=== PATIENT | male | born 1975 | race Caucasian/White ===

== ENCOUNTER 2016-04-07 09:24 | Inpatient (IN) | payer OTHER ==
[2016-04-07 09:55] VITALS: BMI 35.2
--- NOTE | 2016-04-07 11:35 | HP ---
COWS - Scale Resting Pulse: 1= [place] 81-100 Sweatin= Chills/Flushing Restless Observation: 3= Extraneous Movement Pupil Size: 2= Moderately Dilated Bone or Joint Aches: 4=Acute Joint/Muscle Pain Runny Nose/ Eye Tearin= Nasal Congestion GI Upset > 30mins: 2= Nausea/Diarrhea Tremor Observation: 2= Slight Tremor Visible Yawning Observation: 2= >3x During Session Anxiety or Irritability: 2=Irritable/Anxious Goose Flesh Skin: 3=Piloerection COWS Score: 23 CIWA Score - CIWA Score Nausea/Vomitin-Int. Nausea w/Dry Heave Muscle Tremors: 4-Moderate,w/Arms Extend Anxiety: 4-Mod. Anxious/Guarded Agitation: 4-Moderately Restless Paroxysmal Sweats: 1-Minimal Palms Moist Orientation: 0-Oriented Tacttile Disturbances: 3-Moderate Itch/Numb/Burn Auditory Disturbances: 0-None Visual Disturbances: 0-None Headache: 1-Very Mild CIWA-Ar Total Score: 21 Admission [facility] - HPI Chief Complaint: DETOX [place] FOR HEROIN AND ALCOHOL DEPENDENCE Allergies/Adverse Reactions: Allergies Allergy/AdvReac Type Severity Reaction Status Date / Time Fish Containing Products Allergy Severe Hives Verified 04/07/16 10:34 peanut Allergy Severe Difficulty Verified 04/07/16 10:34 Breathing No Known Drug Allergies Allergy Verified 04/07/16 10:34 History of Present Illness: 40 Y/O MALE WITH A HX OF ALCOHOL AND HEROIN DEPENDENCE SEEKING DETOX [place] Exam Limitations: No Limitations - Ebola screening Have you traveled outside of the country in the last 21 days: No Have you had contact with anyone from an Ebola affected area: No Have you been sick,other than usual withdrawal symptoms: No Do you have a fever: No - Review of Systems Constitutional: Chills, Loss of Appetite, Night Sweats, Changes in sleep EENT: reports: Blurred Vision (WEARS GLASSES), Tearing, Nose Congestion Respiratory: reports: No Symptoms reported Cardiac: reports: Lightheadedness GI: reports: Constipated, Diarrhea, Nausea, Poor Appetite, Poor Fluid Intake, Vomiting : reports: No Symptoms Reported Musculoskeletal: reports: Back Pain, Joint Pain, Muscle Pain Integumentary: reports: Bruising (FROM IVD USEON HANDS) Neuro: reports: Headache, Tremors, Unsteady Gait, Dizziness, Other (BLACKOUTS) Endocrine: reports: No Symptoms Reported Hematology: reports: No Symptoms Reported Psychiatric: reports: Orientated x3, Anxious, other (HX INSOMNIA) Other Systems: Reviewed and Negative Patient History - Patient Medical History Hx Anemia: No Hx Asthma: No Hx Chronic Obstructive Pulmonary Disease (COPD): No Hx Cardiac Disorders: No Hx Hypertension: Yes (on meds.) Hx Hypercholesterolemia: No Hx Pacemaker: No HX Cerebrovascular Accident: No Hx Seizures: No Hx Diabetes: No Hx Gastrointestinal Disorders: No Hx Liver Disease: No Hx Genitourinary Disorders: No Hx Sexually Transmitted Disorders: No Hx Renal Disease (ESRD): No Hx Thyroid Disease: No Hx Human Immunodeficiency Virus (HIV): No (NEGATIVE HX) Hx Hepatitis C: Yes (WAS TREATED) Hx Depression: No Hx Suicide Attempt: No Hx Bipolar Disorder: No Hx Schizophrenia: No Other Medical History: INSOMNIA - Patient Surgical History Past Surgical History: Yes Hx Neurologic Surgery: No Hx Cataract Extraction: No Hx Cardiac Surgery: No Hx Lung Surgery: No Hx Breast Surgery: No Hx Breast Biopsy: No Hx Abdominal Surgery: No Hx Appendectomy: No Hx Cholecystectomy: No Hx Genitourinary Surgery: No Hx Orthopedic Surgery: Yes (left ankle surgery 1997) Other Surgical History: R arm abscess 1 yr ago. Anesthesia Reaction: No - PPD History Previous Implant?: Yes Documented Results: Negative w/o proof Implanted On Prior R Admission?: No Date: 04/21/14 PPD to be Administered?: Yes - Reproductive History Patient is a Female of Child Bearing Age (11 -55 yrs old): No (MALE) - Smoking Cessation Smoking history: Current every day smoker Have you smoked in the past 12 months: Yes Aproximately how many cigarettes per day: 3 Cigars Per Day: 0 Hx Chewing Tobacco Use: No Initiated information on smoking cessation: Yes 'Breaking Loose' booklet given: 04/07/16 - Substance & Tx. History Hx Alcohol Use: Yes (VODKA) Hx Substance Use: Yes (HEROIN/PCP(SPORADICALLY)) Substance Use Type: Alcohol, Heroin Hx Substance Use Treatment: Yes ([facility] ) - Substances Abused Heroin Route: Injection Frequency: Daily Amount used: 8-10 bags Age of first use: 16 Date of Last Use: 04/06/16 Alcohol Route: Oral Frequency: Daily Amount used: 1 and 1/2 pints vodka Age of first use: 13 Date of Last Use: 04/06/16 PCP Route: Smoking Frequency: 1-3 times last 30 days Amount used: 1 joint Age of first use: 23 Date of Last Use: 03/10/16 Family Disease History - Family Disease History Family Disease History: Diabetes: Father (HTN, alcohol), Heart Disease: Father, Other: Father Admission Physical Exam [facility] - Vital Signs Vital Signs: Vital Signs - 24 hr 04/07/16 09:53 Temperature 97.8 F Pulse Rate 92 H Respiratory 18 Rate Blood Pressure 157/104 - Physical General Appearance: Yes: Moderate Distress, Obese, Irritable, Anxious HEENTM: Yes: EOMI, Normocephalic, MEÑO, Pharynx Normal Respiratory: Yes: Chest Non-Tender, Lungs Clear, Normal Breath Sounds, No Respiratory Distress Neck: Yes: Supple, Trachea in good position Breast: Yes: Breast Exam Deferred Cardiology: Yes: Regular Rhythm, Regular Rate, S1, S2 Abdominal: Yes: Normal Bowel Sounds, Non Tender, Soft Genitourinary: Yes: Other (N/C) Back: Yes: Within Normal Limits Musculoskeletal: Yes: full range of Motion, Gait Steady Extremities: Yes: Normal Range of Motion, Non-Tender Neurological: Yes: nurse practitioner physicians assistant II-XII NML intact, Fully Oriented, Alert Integumentary: Yes: Dry, Warm, Track Last (HANDS--NO REDNESS OR SWELLING) Lymphatic: Yes: Within Normal Limits - Diagnostic (1) Essential hypertension Current Visit: Yes Status: Chronic (2) Insomnia Current Visit: Yes Status: Chronic (3) Nicotine dependence Current Visit: Yes Status: Chronic Qualifiers: Nicotine product type: cigarettes Substance use status: uncomplicated Qualified Code(s): F17.210 - Nicotine dependence, cigarettes, uncomplicated (4) Obesity Current Visit: Yes Status: Chronic Qualifiers: Obesity type: unspecified obesity type Obesity severity: unspecified obesity severity Qualified Code(s): E66.9 - Obesity, unspecified (5) Alcohol dependence with uncomplicated withdrawal Current Visit: Yes Status: Acute (6) Opioid dependence with withdrawal Current Visit: Yes Status: Acute (7) PCP (phencyclidine) abuse Current Visit: Yes Status: Acute Cleared for Admission [facility] - Detox or Rehab Detox Regimen/Protocol: Methadone/Librium [facility] Breath Alcohol Content Breath Alcohol Content: 0 Urine Drug Screen - Results Drug Screen Negative: No Urine Drug Screen Results: OPI-Opiates, PCP-Phencyclidine, MDMA-Ecstasy, BZO- Benzodiazepines, OXY-Oxycodone
[2016-04-07] MEDS ORDERED: MAG HYDROX/AL HYDROX/SIMETH 30 ML UNIT-DOSE CUP PO PRN (11:41)
[2016-04-07] MEDS ORDERED: LOPERAMIDE HCL 2 MG CAPSULE PO PRN (11:41)
[2016-04-07] MEDS ORDERED: NICOTINE POLACRILEX 2 MG GUM BUC PRN (11:41)
[2016-04-07] MEDS ORDERED: guaiFENesin/D-METHORPHAN HB 10 ML UNIT-DOSE CUPS PO PRN (11:41)
[2016-04-07] MEDS ORDERED: diphenhydrAMINE HCL 50 MG CAPSULE PO PRN (11:41)
[2016-04-07] MEDS ORDERED: IBUPROFEN 400 MG TABLET (FP) PO PRN (11:41)
[2016-04-07] MEDS ORDERED: chlordiazePOXIDE HCL 25 MG CAPSULE PO PRN (11:41)
[2016-04-07] MEDS ORDERED: P-EPHED 60MG/TRIPROLIDI 2.5MG TABLET PO PRN (11:41)
[2016-04-07] MEDS ORDERED: MAGNESIUM CITRATE 300 ML BOTTLE PO PRN (11:41)
[2016-04-07] MEDS ORDERED: MENTHOL/PHENOL 1 EACH UD MM PRN (11:41)
[2016-04-07] MEDS ORDERED: MAGNESIUM HYDROX 2400MG/30ML ORAL SUSPENSION 30 ML CUP PO PRN (11:41)
[2016-04-07] MEDS ORDERED: chlordiazePOXIDE HCL 25 MG CAPSULE PO ONE (11:55)
[2016-04-07] MEDS ORDERED: METHADONE HCL 10 MG TABLET (FOR DETOX USE ONLY) PO ONE ×2 (11:55→23:00)
[2016-04-07] MEDS: NICOTINE 14 MG/24 HOURS TOPICAL PATCH TD SCH (12:23)
[2016-04-07 14:29] LABS: HIV 1 & 2 AB NEGATIVE; HIV 1 AGp24 NEGATIVE
--- NOTE | 2016-04-07 16:11 | EKG ---
Test Reason : Blood Pressure : / mmHG Vent. Rate : 085 BPM Atrial Rate : 085 BPM P-R Int : 152 ms QRS Dur : 098 ms QT Int : 392 ms P-R-T Axes : 015 068 027 degrees QTc Int : 466 ms SINUS RHYTHM WITH OCCASIONAL AND PREMATURE ATRIAL COMPLEXES AND BASELINE ARTIFACT ABNORMAL ECG NO PREVIOUS ECGS AVAILABLE Confirmed by CUAUHTEMOC MOSS, ROEL ([id number]) on 04/07/2016 4:11:04 PM Referred By: Adriano Zimmer Confirmed By:ROEL POSADAS MD
[2016-04-07] MEDS: chlordiazePOXIDE HCL 25 MG CAPSULE PO SCH ×2 (17:19→22:10)
[2016-04-07] MEDS: THIAMINE HCL 100 MG TABLET (FP) PO SCH (22:10)
[2016-04-08] MEDS: chlordiazePOXIDE HCL 25 MG CAPSULE PO SCH ×4 (05:50→22:00)
[2016-04-08] MEDS: ONDANSETRON *ODT* 4 MG TABLET SL PRN (09:53)
[2016-04-08] MEDS ORDERED: METHADONE HCL 10 MG TABLET (FOR DETOX USE ONLY) PO SCH (10:00)
--- NOTE | 2016-04-08 10:03 | PN ---
[facility] CIWA - CIWA Score Nausea/Vomitin Muscle Tremors: 4-Moderate,w/Arms Extend Anxiety: 4-Mod. Anxious/Guarded Agitation: 4-Moderately Restless Paroxysmal Sweats: 1-Minimal Palms Moist Orientation: 0-Oriented Tacttile Disturbances: 3-Moderate Itch/Numb/Burn Auditory Disturbances: 0-None Visual Disturbances: 0-None Headache: 0-None Present CIWA-Ar Total Score: 21 [facility] COWS - Scale Resting Pulse: 1= [place] 81-100 Sweatin= Chills/Flushing Restless Observation: 3= Extraneous Movement Pupil Size: 2= Moderately Dilated Bone or Joint Aches: 4=Acute Joint/Muscle Pain Runny Nose/ Eye Tearin= Nasal Congestion GI Upset > 30mins: 3= Vomiting/Diarrhea Tremor Observation of Outstretched Hands: 1= Tremor [place], Not Seen Yawning Observation: 1= 1-2x During Session Anxiety or Irritability: 2=Irritable/Anxious Goose Flesh Skin: 0=Smooth Skin COWS Score: 19 [facility] Progress Note (SOAP) Subjective: ANXIETY,TREMORS, SWEATS, NAUSEA,SNEEZING,NASAL CONGESTIONS. Objective: 04/08/16 10:02 Vital Signs Temperature 98.2 F 04/08/16 06:25 Pulse Rate 86 04/08/16 06:25 Respiratory Rate 18 04/08/16 06:25 Blood Pressure 138/102 04/08/16 06:25 O2 Sat by Pulse Oximetry (%) Laboratory Last Values HIV 1&2 Antibody Screen Negative 04/07/16 11:20 HIV P24 Antigen Negative 04/07/16 11:20 OTHER LABS PENDING Assessment: 04/08/16 10:02 WITHDRAWAL S Plan: CONTINUE DETOX ZOFRAN DIRECTED
[2016-04-08] MEDS: PRENATAL VITAMINS W/ FOLIC ACID TABLET (FP) PO SCH (10:20)
[2016-04-08] MEDS: NICOTINE 14 MG/24 HOURS TOPICAL PATCH TD SCH (10:21)
[2016-04-08 10:28] LABS: MCH 29.7 pg (25.7-33.7); MCHC 33.1 g/dl (32.0-35.9); MEAN CELL VOLUME 89.8 fl (80-96); MEAN PLT VOLUME 11.5 fl (7.5-11.1); PLATELET COUNT 142 K/MM3 (134-434); RDW 13.2 % (11.9-15.9); WHITE BLOOD COUNT 5.2 K/mm3 (4.0-10.0)
[2016-04-08 10:52] LABS: ALBUMIN 4.2 g/dl (3.4-5.0); ALK PHOS 76 U/L (45-117); ANION GAP 7 (8-16); BILIRUBIN,TOTAL 0.5 mg/dL (0.2-1.0); CALCIUM 9.6 mg/dL (8.5-10.1); CO2 29 mmol/L (21-32); CREATININE 1.2 mg/dL (0.7-1.3); GLUCOSE,RANDOM 106 mg/dL (74-106); SGOT/AST 23 U/L (15-37); SGPT/ALT 38 U/L (12-78); TOT PROT 7.8 g/dl (6.4-8.2)
--- NOTE | 2016-04-08 11:03 | CONSULT ---
[facility] Psychiatric Consult - Data Date of interview: 04/08/16 Admission source: [facility] Identifying data: This is 40 years old single H male,residing with family, employed admitted to [address] [place] [address] for Alcohol and Opioid dependence. Substance Abuse History: Reports drinking since 13 years old,Heroin since 16 years old (about 1 0 bags daily),PCP on and off. Medical History: Significant for Obesity,HTN. Psychiatric History: Patient denies psychiatric history,but reports some sleeping difficulties.he states that trazodone 100 mg po hs was helping in the past while in detox/rehab treatment. Physical/Sexual Abuse/Trauma History: denies Mental Status Exam - Mental Status Exam Alert and Oriented to: Time, Place, Person Cognitive Function: Grossly Intact Patient Appearance: Unkempt Mood: Sad, Irritable Affect: Mood Congruent Patient Behavior: Cooperative Speech Pattern: Clear Voice Loudness: Normal Thought Process: Goal Oriented Thought Disorder: Not Present Hallucinations: Denies Suicidal Ideation: Denies Homicidal Ideation: Denies Insight/Judgement: Fair Sleep: Difficulty falling asleep Appetite: Fair Muscle strength/Tone: Normal Gait/Station: Normal Psychiatric Findings - Problem List ([place] 1, 2,3) (1) Alcohol dependence with uncomplicated withdrawal Current Visit: Yes Status: Chronic (2) PCP (phencyclidine) abuse Current Visit: Yes Status: Chronic (3) Essential hypertension Current Visit: Yes Status: Chronic (4) Nicotine dependence Current Visit: Yes Status: Chronic Qualifiers: Nicotine product type: cigarettes Substance use status: uncomplicated Qualified Code(s): F17.210 - Nicotine dependence, cigarettes, uncomplicated (5) Obesity Current Visit: Yes Status: Chronic Qualifiers: Obesity type: unspecified obesity type Obesity severity: unspecified obesity severity Qualified Code(s): E66.9 - Obesity, unspecified (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
[2016-04-08] MEDS ORDERED: INFLUENZA VACCINE 45 MCG/0.5 ML (MDV 16-17) IM ONE (12:00)
[2016-04-08] MEDS: amLODIPine BESYLATE 10 MG TABLET (FP) PO SCH (12:12)
[2016-04-08 14:20] LABS: URINE APPEARANCE SLCLOUDY; URINE BLOOD NEGATIVE (NEGATIVE); URINE COLOR AMBER; URINE GLUCOSE (UA) NEGATIVE (NEGATIVE); URINE KETONE TRACE (NEGATIVE); URINE LEUK ESTERASE NEGATIVE (NEGATIVE); URINE NITRITE NEGATIVE (NEGATIVE); URINE UROBILINOGEN 2.0 E.U/dl E.U./dl (0.2-1.0)
[2016-04-08 14:24] LABS: URINE PROTEIN 2+ (NEGATIVE)
[2016-04-08 14:32] LABS: URINE HYALINE CAST 10 /lpf; URINE MUCUS MANY; URINE RBC 1 /hpf (0-3); URINE WBC 3 /hpf (3-5)
[2016-04-08] MEDS: traZODone HCL 100 MG TABLET (FP) PO SCH (22:00)
[2016-04-08] MEDS: THIAMINE HCL 100 MG TABLET (FP) PO SCH (22:00)
[2016-04-08] MEDS: hydrOXYzine PAMOATE 25 MG CAPSULE (FP) PO PRN (23:51)
[2016-04-09] MEDS: ACETAMINOPHEN 325 MG TABLET (FP) PO PRN (05:45)
[2016-04-09] MEDS: chlordiazePOXIDE HCL 25 MG CAPSULE PO SCH ×2 (05:45→11:34)
[2016-04-09] MEDS: amLODIPine BESYLATE 10 MG TABLET (FP) PO SCH ×2 (07:33→09:17)
[2016-04-09] MEDS ORDERED: chlordiazePOXIDE HCL 25 MG CAPSULE PO ONE (09:04)
[2016-04-09] MEDS ORDERED: cloNIDine HCL 0.1 MG TABLET PO ONE ×2 (09:44→19:16)
[2016-04-09] MEDS: METHADONE HCL 5 MG TABLET (FOR DETOX USE ONLY) PO SCH (09:46)
[2016-04-09] MEDS ORDERED: CYCLOBENZAPRINE HCL 10 MG TABLET (FP) PO ONE (09:46)
[2016-04-09] MEDS: PRENATAL VITAMINS W/ FOLIC ACID TABLET (FP) PO SCH (09:46)
[2016-04-09] MEDS: NICOTINE 14 MG/24 HOURS TOPICAL PATCH TD SCH (09:49)
--- NOTE | 2016-04-09 10:33 | PN ---
[facility] CIWA - CIWA Score Nausea/Vomitin-Int. Nausea w/Dry Heave Muscle Tremors: 4-Moderate,w/Arms Extend Anxiety: 4-Mod. Anxious/Guarded Agitation: 4-Moderately Restless Paroxysmal Sweats: 1-Minimal Palms Moist Orientation: 0-Oriented Tacttile Disturbances: 3-Moderate Itch/Numb/Burn Auditory Disturbances: 0-None Visual Disturbances: 0-None Headache: 0-None Present CIWA-Ar Total Score: 20 S COWS - Scale Resting Pulse: 1= [place] 81-100 Sweatin=Flushed/Facial Moisture Restless Observation: 3= Extraneous Movement Pupil Size: 2= Moderately Dilated Bone or Joint Aches: 4=Acute Joint/Muscle Pain Runny Nose/ Eye Tearin= Nasal Congestion GI Upset > 30mins: 2= Nausea/Diarrhea Tremor Observation of Outstretched Hands: 2= Slight Tremor Visible Yawning Observation: 2= >3x During Session Anxiety or Irritability: 2=Irritable/Anxious Goose Flesh Skin: 3=Piloerection COWS Score: 24 [facility] Progress Note (SOAP) Subjective: C/O SEVERE WITHDRAWAL SX--ANXIETY,IRRITABILITY,SWEATS, MUSCLE ACHES,TREMORS, GOOSE BUMPS, NAUSEA,HEADACHES,SNEEZING,NO APPETITE, INTERMITTENT SLEEP. Objective: 04/09/16 10:33 Vital Signs Temperature 98.4 F 04/09/16 10:14 Pulse Rate 107 H 04/09/16 10:14 Respiratory Rate 18 04/09/16 10:14 Blood Pressure 154/107 04/09/16 10:14 O2 Sat by Pulse Oximetry (%) Laboratory Last Values WBC 5.2 K/mm3 (4.0-10.0) D 04/08/16 05:30 RBC 4.85 M/mm3 (4.00-5.60) 04/08/16 05:30 Hgb 14.4 GM/dL (11.7-16.9) 04/08/16 05:30 Hct 43.5 % (35.4-49) 04/08/16 05:30 MCV 89.8 fl (80-96) 04/08/16 05:30 MCHC 33.1 g/dl (32.0-35.9) 04/08/16 05:30 RDW 13.2 % (11.9-15.9) 04/08/16 05:30 Plt Count 142 K/MM3 (134-434) 04/08/16 05:30 MPV 11.5 fl (7.5-11.1) H 04/08/16 05:30 Sodium 137 mmol/L (136-145) 04/08/16 05:30 Potassium 4.3 mmol/L (3.5-5.1) 04/08/16 05:30 Chloride 101 mmol/L (98-107) 04/08/16 05:30 Carbon Dioxide 29 mmol/L (21-32) 04/08/16 05:30 Anion Gap 7 (8-16) L 04/08/16 05:30 BUN 17 mg/dL (7-18) 04/08/16 05:30 Creatinine 1.2 mg/dL (0.7-1.3) D 04/08/16 05:30 Creat Clearance w eGFR > 60 (>60) 04/08/16 05:30 Random Glucose 106 mg/dL (74-106) 04/08/16 05:30 Calcium 9.6 mg/dL (8.5-10.1) 04/08/16 05:30 Total Bilirubin 0.5 mg/dL (0.2-1.0) D 04/08/16 05:30 AST 23 U/L (15-37) D 04/08/16 05:30 ALT 38 U/L (12-78) D 04/08/16 05:30 Alkaline Phosphatase 76 U/L (45-117) 04/08/16 05:30 Total Protein 7.8 g/dl (6.4-8.2) 04/08/16 05:30 Albumin 4.2 g/dl (3.4-5.0) 04/08/16 05:30 Urine Color Shayy 04/08/16 11:15 Urine Appearance Slcloudy 04/08/16 11:15 Urine pH 5.0 (5.0-8.0) 04/08/16 11:15 Ur Specific [place] 1.035 (1.001-1.035) 04/08/16 11:15 Urine Protein 2+ (NEGATIVE) H 04/08/16 11:15 Urine Glucose (UA) Negative (NEGATIVE) 04/08/16 11:15 Urine Ketones Trace (NEGATIVE) H 04/08/16 11:15 Urine Blood Negative (NEGATIVE) 04/08/16 11:15 Urine Nitrite Negative (NEGATIVE) 04/08/16 11:15 Urine Bilirubin 2.0 (NEGATIVE) 04/08/16 11:15 Urine Urobilinogen 2.0 e.u/dl E.U./dl (0.2-1.0) 04/08/16 11:15 Ur Leukocyte Esterase Negative (NEGATIVE) 04/08/16 11:15 Urine RBC 1 /hpf (0-3) 04/08/16 11:15 Urine WBC 3 /hpf (3-5) 04/08/16 11:15 Ur Epithelial Cells Rare /hpf (FEW) 04/08/16 11:15 Hyaline Casts 10 /lpf 04/08/16 11:15 Urine Mucus Many 04/08/16 11:15 RPR Titer Nonreactive (NONREACTIVE) 04/08/16 05:30 HIV 1&2 Antibody Screen Negative 04/07/16 11:20 HIV P24 Antigen Negative 04/07/16 11:20 Assessment: 04/09/16 10:33 WITHDRAWAL SX Plan: CONTINUE DETOX DIRECTED.
[2016-04-09] MEDS: ONDANSETRON *ODT* 4 MG TABLET SL PRN (12:48)
[2016-04-09] MEDS: CYCLOBENZAPRINE HCL 10 MG TABLET (FP) PO SCH ×2 (13:41→22:01)
[2016-04-09] MEDS ORDERED: TRIMETHOBENZAMIDE HCL 200MG/2ML INJ IM PRN (15:55)
[2016-04-09] MEDS: chlordiazePOXIDE 5 MG CAPSULE PO SCH ×2 (18:23→22:01)
--- NOTE | 2016-04-09 19:20 | PN ---
[facility] Progress Note Note: bp 160/119 with vomiting undigested food earlier today clonidin 0.1 mg x 1 now repeat bp in two hours around 900pm discontinue motrin begin zantac 150 mg bid continue detox
[2016-04-09] MEDS ORDERED: cloNIDine HCL 0.1 MG TABLET ONE (19:24)
[2016-04-09] MEDS: hydrOXYzine PAMOATE 25 MG CAPSULE (FP) PO PRN (19:27)
[2016-04-09] MEDS: THIAMINE HCL 100 MG TABLET (FP) PO SCH (22:01)
[2016-04-09] MEDS: traZODone HCL 100 MG TABLET (FP) PO SCH (22:01)
[2016-04-09] MEDS: RANITIDINE HCL 150 MG TABLET (FP) PO SCH (22:01)
[2016-04-09] MEDS: LISINOPRIL 10 MG TABLET (FP) PO SCH (22:54)
[2016-04-10] MEDS: chlordiazePOXIDE 5 MG CAPSULE PO SCH ×2 (05:43→10:24)
[2016-04-10] MEDS: CYCLOBENZAPRINE HCL 10 MG TABLET (FP) PO SCH ×3 (05:45→22:08)
[2016-04-10] MEDS: amLODIPine BESYLATE 10 MG TABLET (FP) PO SCH ×2 (07:28→10:27)
[2016-04-10] MEDS: LISINOPRIL 10 MG TABLET (FP) PO SCH ×2 (10:24→22:08)
[2016-04-10] MEDS: RANITIDINE HCL 150 MG TABLET (FP) PO SCH ×2 (10:24→22:08)
[2016-04-10] MEDS: PRENATAL VITAMINS W/ FOLIC ACID TABLET (FP) PO SCH (10:24)
[2016-04-10] MEDS: NICOTINE 14 MG/24 HOURS TOPICAL PATCH TD SCH (10:24)
[2016-04-10] MEDS: METHADONE HCL 5 MG TABLET (FOR DETOX USE ONLY) PO SCH (10:24)
--- NOTE | 2016-04-10 10:55 | PN ---
[facility] Progress Note (SOAP) Subjective: ANXIETY, DECREASED NAUSEA/VOMITING,RESTLESSNESS. Objective: 04/10/16 10:54 Vital Signs Temperature 97.4 F L 04/10/16 10:00 Pulse Rate 115 H 04/10/16 10:00 Respiratory Rate 04/10/16 10:00 Blood Pressure 144/98 04/10/16 10:00 O2 Sat by Pulse Oximetry (%) Assessment: 04/10/16 10:54 WITHDRAWAL SX Plan: CONTINUE DETOX
[2016-04-10] MEDS ORDERED: chlordiazePOXIDE HCL 25 MG CAPSULE PO ONE (14:00)
[2016-04-10] MEDS: chlordiazePOXIDE HCL 10 MG CAPSULE PO SCH ×2 (17:09→22:08)
[2016-04-10] MEDS: THIAMINE HCL 100 MG TABLET (FP) PO SCH (22:08)
[2016-04-10] MEDS: traZODone HCL 100 MG TABLET (FP) PO SCH (22:09)
[2016-04-11] MEDS: ONDANSETRON *ODT* 4 MG TABLET SL PRN (03:31)
[2016-04-11] MEDS: hydrOXYzine PAMOATE 25 MG CAPSULE (FP) PO PRN (05:30)
[2016-04-11] MEDS: CYCLOBENZAPRINE HCL 10 MG TABLET (FP) PO SCH ×3 (05:30→22:51)
[2016-04-11] MEDS: chlordiazePOXIDE HCL 10 MG CAPSULE PO SCH ×2 (05:30→10:24)
[2016-04-11] MEDS: ACETAMINOPHEN 325 MG TABLET (FP) PO PRN (05:31)
[2016-04-11] MEDS ORDERED: METHADONE HCL 10 MG TABLET (FOR DETOX USE ONLY) PO SCH (10:00)
[2016-04-11] MEDS: PRENATAL VITAMINS W/ FOLIC ACID TABLET (FP) PO SCH (10:23)
[2016-04-11] MEDS: RANITIDINE HCL 150 MG TABLET (FP) PO SCH ×2 (10:24→22:51)
[2016-04-11] MEDS: LISINOPRIL 10 MG TABLET (FP) PO SCH ×2 (10:24→22:51)
[2016-04-11] MEDS: amLODIPine BESYLATE 10 MG TABLET (FP) PO SCH (10:24)
[2016-04-11] MEDS: NICOTINE 14 MG/24 HOURS TOPICAL PATCH TD SCH (10:26)
--- NOTE | 2016-04-11 11:12 | PN ---
[facility] Progress Note (SOAP) Subjective: N/V, adominal discomfort, malaise Objective: 04/11/16 11:09 Vital Signs - 8 hr 04/11/16 04/11/16 04/11/16 06:28 07:58 10:57 Temperature 96.4 F L 97 F L Pulse Rate 118 H 120 H 114 H Respiratory 18 18 20 Rate Blood Pressure 157/95 135/93 174/116 04/11/16 10:58 Temperature Pulse Rate Respiratory Rate Blood Pressure 163/116 Laboratory Last Values WBC 5.2 K/mm3 (4.0-10.0) D 04/08/16 05:30 RBC 4.85 M/mm3 (4.00-5.60) 04/08/16 05:30 Hgb 14.4 GM/dL (11.7-16.9) 04/08/16 05:30 Hct 43.5 % (35.4-49) 04/08/16 05:30 MCV 89.8 fl (80-96) 04/08/16 05:30 MCHC 33.1 g/dl (32.0-35.9) 04/08/16 05:30 RDW 13.2 % (11.9-15.9) 04/08/16 05:30 Plt Count 142 K/MM3 (134-434) 04/08/16 05:30 MPV 11.5 fl (7.5-11.1) H 04/08/16 05:30 Sodium 137 mmol/L (136-145) 04/08/16 05:30 Potassium 4.3 mmol/L (3.5-5.1) 04/08/16 05:30 Chloride 101 mmol/L (98-107) 04/08/16 05:30 Carbon Dioxide 29 mmol/L (21-32) 04/08/16 05:30 Anion Gap 7 (8-16) L 04/08/16 05:30 BUN 17 mg/dL (7-18) 04/08/16 05:30 Creatinine 1.2 mg/dL (0.7-1.3) D 04/08/16 05:30 Creat Clearance w eGFR > 60 (>60) 04/08/16 05:30 Random Glucose 106 mg/dL (74-106) 04/08/16 05:30 Calcium 9.6 mg/dL (8.5-10.1) 04/08/16 05:30 Total Bilirubin 0.5 mg/dL (0.2-1.0) D 04/08/16 05:30 AST 23 U/L (15-37) D 04/08/16 05:30 ALT 38 U/L (12-78) D 04/08/16 05:30 Alkaline Phosphatase 76 U/L (45-117) 04/08/16 05:30 Total Protein 7.8 g/dl (6.4-8.2) 04/08/16 05:30 Albumin 4.2 g/dl (3.4-5.0) 04/08/16 05:30 Urine Color Shayy 04/08/16 11:15 Urine Appearance Slcloudy 04/08/16 11:15 Urine pH 5.0 (5.0-8.0) 04/08/16 11:15 Ur Specific [place] 1.035 (1.001-1.035) 04/08/16 11:15 Urine Protein 2+ (NEGATIVE) H 04/08/16 11:15 Urine Glucose (UA) Negative (NEGATIVE) 04/08/16 11:15 Urine Ketones Trace (NEGATIVE) H 04/08/16 11:15 Urine Blood Negative (NEGATIVE) 04/08/16 11:15 Urine Nitrite Negative (NEGATIVE) 04/08/16 11:15 Urine Bilirubin 2.0 (NEGATIVE) 04/08/16 11:15 Urine Urobilinogen 2.0 e.u/dl E.U./dl (0.2-1.0) 04/08/16 11:15 Ur Leukocyte Esterase Negative (NEGATIVE) 04/08/16 11:15 Urine RBC 1 /hpf (0-3) 04/08/16 11:15 Urine WBC 3 /hpf (3-5) 04/08/16 11:15 Ur Epithelial Cells Rare /hpf (FEW) 04/08/16 11:15 Hyaline Casts 10 /lpf 04/08/16 11:15 Urine Mucus Many 04/08/16 11:15 RPR Titer Nonreactive (NONREACTIVE) 04/08/16 05:30 HIV 1&2 Antibody Screen Negative 04/07/16 11:20 HIV P24 Antigen Negative 04/07/16 11:20 Labs noted Assessment: 04/11/16 11:10 withdrawal sx Plan: continie detox
[2016-04-11] MEDS ORDERED: cloNIDine HCL 0.1 MG TABLET PO ONE (12:02)
--- NOTE | 2016-04-11 19:14 | PN ---
[facility] Progress Note Note: PATIENT REPORTEDLY HAD ELEVATED BP , ONE TIME DOSE OF CLONIDINE 0.1MG GIVEN WITH GOOD EFFECT.
[2016-04-11] MEDS: traZODone HCL 100 MG TABLET (FP) PO SCH (22:51)
[2016-04-11] MEDS: THIAMINE HCL 100 MG TABLET (FP) PO SCH (22:51)
[2016-04-12] MEDS: CYCLOBENZAPRINE HCL 10 MG TABLET (FP) PO SCH (05:17)
[2016-04-12] MEDS: hydrOXYzine PAMOATE 25 MG CAPSULE (FP) PO PRN (05:17)
[2016-04-12] MEDS: ONDANSETRON *ODT* 4 MG TABLET SL PRN (05:18)
[2016-04-12] MEDS ORDERED: METHADONE HCL 5 MG TABLET (FOR DETOX USE ONLY) PO SCH (06:00)
[2016-04-12 06:22] VITALS: BP 142/101; PULSE 122; TEMP 97.1
[2016-04-12] MEDS: ACETAMINOPHEN 325 MG TABLET (FP) PO PRN (07:19)
[2016-04-12] MEDS: amLODIPine BESYLATE 10 MG TABLET (FP) PO SCH (07:20)
--- NOTE | 2016-04-12 10:42 | DS ---
[facility] Detox Discharge Summary Admission Date: 04/07/16 Discharge Date: 04/12/16 - History Present History: Alcohol Dependence, Opioid Dependence, Pcp Dependence Pertinent Past History: Obesity- BMI 35 Hypertension Hep C- Treated - Physical Exam Results Vital Signs: Vital Signs Temperature 97.1 F L 04/12/16 06:21 Pulse Rate 122 H 04/12/16 06:21 Respiratory Rate 18 04/12/16 06:21 Blood Pressure 142/101 04/12/16 06:21 O2 Sat by Pulse Oximetry (%) Pertinent Admission Physical Exam Findings: Withdrawal Symptoms Laboratory Last Values WBC 5.2 K/mm3 (4.0-10.0) D 04/08/16 05:30 RBC 4.85 M/mm3 (4.00-5.60) 04/08/16 05:30 Hgb 14.4 GM/dL (11.7-16.9) 04/08/16 05:30 Hct 43.5 % (35.4-49) 04/08/16 05:30 MCV 89.8 fl (80-96) 04/08/16 05:30 MCHC 33.1 g/dl (32.0-35.9) 04/08/16 05:30 RDW 13.2 % (11.9-15.9) 04/08/16 05:30 Plt Count 142 K/MM3 (134-434) 04/08/16 05:30 MPV 11.5 fl (7.5-11.1) H 04/08/16 05:30 Sodium 137 mmol/L (136-145) 04/08/16 05:30 Potassium 4.3 mmol/L (3.5-5.1) 04/08/16 05:30 Chloride 101 mmol/L (98-107) 04/08/16 05:30 Carbon Dioxide 29 mmol/L (21-32) 04/08/16 05:30 Anion Gap 7 (8-16) L 04/08/16 05:30 BUN 17 mg/dL (7-18) 04/08/16 05:30 Creatinine 1.2 mg/dL (0.7-1.3) D 04/08/16 05:30 Creat Clearance w eGFR > 60 (>60) 04/08/16 05:30 Random Glucose 106 mg/dL (74-106) 04/08/16 05:30 Calcium 9.6 mg/dL (8.5-10.1) 04/08/16 05:30 Total Bilirubin 0.5 mg/dL (0.2-1.0) D 04/08/16 05:30 AST 23 U/L (15-37) D 04/08/16 05:30 ALT 38 U/L (12-78) D 04/08/16 05:30 Alkaline Phosphatase 76 U/L (45-117) 04/08/16 05:30 Total Protein 7.8 g/dl (6.4-8.2) 04/08/16 05:30 Albumin 4.2 g/dl (3.4-5.0) 04/08/16 05:30 Urine Color Shayy 04/08/16 11:15 Urine Appearance Slcloudy 04/08/16 11:15 Urine pH 5.0 (5.0-8.0) 04/08/16 11:15 Ur Specific [place] 1.035 (1.001-1.035) 04/08/16 11:15 Urine Protein 2+ (NEGATIVE) H 04/08/16 11:15 Urine Glucose (UA) Negative (NEGATIVE) 04/08/16 11:15 Urine Ketones Trace (NEGATIVE) H 04/08/16 11:15 Urine Blood Negative (NEGATIVE) 04/08/16 11:15 Urine Nitrite Negative (NEGATIVE) 04/08/16 11:15 Urine Bilirubin 2.0 (NEGATIVE) 04/08/16 11:15 Urine Urobilinogen 2.0 e.u/dl E.U./dl (0.2-1.0) 04/08/16 11:15 Ur Leukocyte Esterase Negative (NEGATIVE) 04/08/16 11:15 Urine RBC 1 /hpf (0-3) 04/08/16 11:15 Urine WBC 3 /hpf (3-5) 04/08/16 11:15 Ur Epithelial Cells Rare /hpf (FEW) 04/08/16 11:15 Hyaline Casts 10 /lpf 04/08/16 11:15 Urine Mucus Many 04/08/16 11:15 RPR Titer Nonreactive (NONREACTIVE) 04/08/16 05:30 HIV 1&2 Antibody Screen Negative 04/07/16 11:20 HIV P24 Antigen Negative 04/07/16 11:20 labs noted - Treatment Hospital Course: Detox Protocol Followed, Detoxed Safely, Responded well Patient has Accepted a Rehab Referral to: Declined - Medication Discharge Medications: Ambulatory Orders Amlodipine Besylate [Norvasc -] 10 mg PO DAILY #30 tablet 04/21/14 Trazodone HCl [Desyrel -] 100 mg PO HS #30 tablet 04/08/16 - Diagnosis (1) Essential hypertension Status: Chronic (2) Opioid dependence with withdrawal Status: Acute (3) Alcohol dependence with uncomplicated withdrawal Status: Acute (4) Nicotine dependence Status: Acute Qualifiers: Nicotine product type: cigarettes Substance use status: uncomplicated Qualified Code(s): F17.210 - Nicotine dependence, cigarettes, uncomplicated (5) Obesity Status: Chronic Qualifiers: Obesity type: unspecified obesity type Obesity severity: unspecified obesity severity Qualified Code(s): E66.9 - Obesity, unspecified (6) PCP (phencyclidine) abuse Status: Acute (7) Substance-induced sleep disorder Status: Acute - AMA Did Patient Leave Against Medical Advice: No
== END 2016-04-12 09:12 | disposition home or self-care (01) | DRG 773 ==
LOC: YASAS 09:24 → Y3N 11:03
PROVIDERS: ADMIT Internal Medicine; ATTEND Internal Medicine
PROC: HZ2ZZZZ Detoxification Services for Substance Abuse Treatment (ICD-10-PCS; principal; 2016-04-07)
DX: F11.23 Opioid dependence with withdrawal (principal); F10.230 Alcohol dependence with withdrawal, uncomplicated; F16.10 Hallucinogen abuse, uncomplicated; F17.210 Nicotine dependence, cigarettes, uncomplicated; F19.282 Other psychoactive substance dependence with psychoactive substance-induced sleep disorder; I10 Essential (primary) hypertension; E66.9 Obesity, unspecified; Z68.35 Body mass index [BMI] 35.0-35.9, adult; G47.00 Insomnia, unspecified
CPT/HCPCS: 36415; 80053; 81003; 81015; 85027; 86593; 87389; 93005; 93010

== ENCOUNTER 2016-05-17 09:53 | Inpatient (IN) | payer OTHER ==
[2016-05-17 10:16] VITALS: BMI 35.7
--- NOTE | 2016-05-17 11:02 | HP ---
COWS - Scale Resting Pulse: 2= [place] 101-120 Sweatin= Chills/Flushing Restless Observation: 1= Difficult to Sit Still Pupil Size: 0= Normal to Room Light Bone or Joint Aches: 2= Severe Diffuse Aches Runny Nose/ Eye Tearin= Runny Nose/Eyes GI Upset > 30mins: 3= Vomiting/Diarrhea Tremor Observation: 2= Slight Tremor Visible Yawning Observation: 1= 1-2x During Session Anxiety or Irritability: 2=Irritable/Anxious Goose Flesh Skin: 3=Piloerection COWS Score: 19 CIWA Score - CIWA Score Nausea/Vomitin-Int. Nausea w/Dry Heave Muscle Tremors: 2 Anxiety: 4-Mod. Anxious/Guarded Agitation: 3 Paroxysmal Sweats: 2 Orientation: 0-Oriented Tacttile Disturbances: 0-None Auditory Disturbances: 0-None Visual Disturbances: 0-None Headache: 3-Moderate CIWA-Ar Total Score: 18 Admission ROS BHS - HPI Chief Complaint: "I relapsed and I just want to get back on track and be clean and healthy.' Patient is here to Detox from Alcohol and Heroin. Allergies/Adverse Reactions: Allergies Allergy/AdvReac Type Severity Reaction Status Date / Time Fish Containing Products Allergy Severe Hives Verified 05/17/16 10:29 peanut Allergy Severe Difficulty Verified 05/17/16 10:29 Breathing No Known Drug Allergies Allergy Verified 05/17/16 10:29 trazodone AdvReac Severe priapism Verified 05/17/16 10:53 History of Present Illness: Pt. is a 40 YO male here to detox from Alcohol and Heroin. Pt. has had several previous Detox admissions at [facility]. Pt. also intermittently uses Marijuana. Exam Limitations: No Limitations - Ebola screening Have you traveled outside of the country in the last 21 days: No Have you had contact with anyone from an Ebola affected area: No Have you been sick,other than usual withdrawal symptoms: No Do you have a fever: No - Review of Systems Constitutional: Chills, Diaphoresis, Fever, Loss of Appetite, Malaise, Night Sweats, Changes in sleep EENT: reports: Nose Congestion, Sinus Pressure Respiratory: reports: No Symptoms reported Cardiac: reports: No Symptoms Reported GI: reports: Constipated, Diarrhea, Nausea, Poor Appetite, Indigestion, Other ( Heartburn.) : reports: No Symptoms Reported Musculoskeletal: reports: Back Pain, Joint Pain, Muscle Pain, Joint Stiffness Integumentary: reports: No Symptoms Reported Neuro: reports: Headache, Tremors Endocrine: reports: No Symptoms Reported Hematology: reports: No Symptoms Reported Psychiatric: reports: Judgement Intact, Mood/Affect Appropiate, Orientated x3, Anxious Other Systems: Reviewed and Negative Patient History - Patient Medical History Hx Anemia: No Hx Asthma: No Hx Chronic Obstructive Pulmonary Disease (COPD): No Hx Cancer: No Hx Cardiac Disorders: No Hx Congestive Heart Failure: No Hx Hypertension: Yes (Takes Amlodipine.) Hx Hypercholesterolemia: No Hx Pacemaker: No HX Cerebrovascular Accident: No Hx Seizures: No Hx Dementia: No Hx Diabetes: No Hx Gastrointestinal Disorders: Yes (acid reflux) Hx Liver Disease: Yes (Hep C, Treated 2007, Achieved SVR.) Hx Genitourinary Disorders: No Hx Sexually Transmitted Disorders: No Hx Renal Disease (ESRD): No Hx Thyroid Disease: No Hx Human Immunodeficiency Virus (HIV): No (NEGATIVE HX; Last tested: 03/2016.) Hx Hepatitis C: Yes (WAS TREATED 2007, ACHIEVED SVR.) Hx Depression: No Hx Suicide Attempt: No (PATIENT DENIES CURRENT SI / HI.) Hx Bipolar Disorder: No Hx Schizophrenia: No Other Medical History: 2 episodes of prolonged erection, 2011 & 04/07, possibly due to Trazadone? - Patient Surgical History Past Surgical History: Yes Hx Neurologic Surgery: No Hx Cataract Extraction: No Hx Cardiac Surgery: No Hx Lung Surgery: No Hx Breast Surgery: No Hx Breast Biopsy: No Hx Abdominal Surgery: No Hx Appendectomy: No Hx Cholecystectomy: No Hx Genitourinary Surgery: No Hx Section: No Hx Orthopedic Surgery: Yes (left ankle in 1998) Other Surgical History: R arm abscess 1 yr ago. Anesthesia Reaction: No - PPD History Previous Implant?: Yes Documented Results: Negative w/proof Implanted On Prior R Admission?: Yes Date: 04/09/16 Results: 0 mm PPD to be Administered?: No - Reproductive History Patient is a Female of Child Bearing Age (11 -55 yrs old): No (PATIENT IS MALE.) - Smoking Cessation Smoking history: Current every day smoker Have you smoked in the past 12 months: Yes Aproximately how many cigarettes per day: 5 Cigars Per Day: 0 Hx Chewing Tobacco Use: No Initiated information on smoking cessation: Yes 'Breaking Loose' booklet given: 05/17/16 (GIVEN ON UNIT.) - Substance & Tx. History Hx Alcohol Use: Yes Hx Substance Use: Yes Substance Use Type: Alcohol, Heroin, Marijuana Hx Substance Use Treatment: Yes (Previous Detox admissions at [facility].) - Substances Abused Heroin Route: Injection Frequency: Daily Amount used: 8-10 bags Age of first use: 16 Date of Last Use: 05/16/16 Alcohol-vodka/beer Route: Oral Frequency: Daily Amount used: 2 pts./1 (40 oz.) Age of first use: 13 Date of Last Use: 05/17/16 Marijuana Route: Smoking Frequency: 1-2 times per week Amount used: $5-10 Age of first use: 18 Date of Last Use: 05/13/16 Family Disease History - Family Disease History Family Disease History: Diabetes: Father (HTN, alcohol), Heart Disease: Father, Other: Father, Mother (Knee Osteoarthritis.) Admission Physical Exam [facility] - Vital Signs Vital Signs: Vital Signs - 24 hr 05/17/16 10:13 Temperature 98.2 F Pulse Rate 106 H Respiratory 18 Rate Blood Pressure 151/97 - Physical General Appearance: Yes: Nourished, Appropriately Dressed, Mild Distress, Tremorous, Anxious HEENTM: Yes: Hearing grossly Normal, Normocephalic, Normal Voice, MEÑO, Pharynx Normal Respiratory: Yes: Chest Non-Tender, Lungs Clear, No Respiratory Distress Neck: Yes: No masses,lesions,Nodules, Supple, Trachea in good position Breast: Yes: Breast Exam Deferred Cardiology: Yes: Regular Rhythm, Regular Rate, S1, S2 Abdominal: Yes: Normal Bowel Sounds, Non Tender, Soft, Protuberent Genitourinary: Yes: Within Normal Limits Back: Yes: Decreased Range of Motion Musculoskeletal: Yes: Gait Steady, Back pain, Joint Stiffness Extremities: Yes: Tremors Neurological: Yes: Fully Oriented, Alert, Normal Mood/Affect, Normal Response Integumentary: Yes: Normal Color, Dry, Warm Lymphatic: Yes: Within Normal Limits - Diagnostic (1) Alcohol dependence with uncomplicated withdrawal Current Visit: Yes Status: Acute (2) Nicotine dependence Current Visit: Yes Status: Chronic Qualifiers: Nicotine product type: cigarettes Substance use status: uncomplicated Qualified Code(s): F17.210 - Nicotine dependence, cigarettes, uncomplicated (3) Opioid dependence with withdrawal Current Visit: Yes Status: Acute (4) Essential hypertension Current Visit: Yes Status: Chronic Comment: obesity related hypertension (5) Cannabis dependence, uncomplicated Current Visit: Yes Status: Acute (6) History of priapism Current Visit: Yes Status: Chronic (7) Chronic heartburn Current Visit: Yes Status: Chronic Cleared for Admission BHS - Detox or Rehab S Level of Care: Medically Managed (ADVISED PATIENT TO FOLLOW-UP WITH CONTRACTOR [employer] / REHAB MEDICAL PROVIDER AFTER DISCHARGE FROM DETOX FOR GENERAL MEDICAL ASSESSMENT.) Detox Regimen/Protocol: Methadone/Librium BHS Breath Alcohol Content Breath Alcohol Content: 0 Urine Drug Screen - Results Drug Screen Negative: No Urine Drug Screen Results: THC-Marijuana, NADEGE-Cocaine, OPI-Opiates, BZO- Benzodiazepines, OXY-Oxycodone
[2016-05-17] MEDS ORDERED: guaiFENesin/D-METHORPHAN HB 10 ML UNIT-DOSE CUPS PO PRN (11:37)
[2016-05-17] MEDS ORDERED: hydrOXYzine PAMOATE 50 MG CAPSULE (FP) PO PRN (11:37)
[2016-05-17] MEDS ORDERED: ACETAMINOPHEN 325 MG TABLET (FP) PO PRN (11:37)
[2016-05-17] MEDS ORDERED: P-EPHED 60MG/TRIPROLIDI 2.5MG TABLET PO PRN (11:37)
[2016-05-17] MEDS ORDERED: MAGNESIUM CITRATE 300 ML BOTTLE PO PRN (11:37)
[2016-05-17] MEDS ORDERED: NICOTINE POLACRILEX 2 MG GUM BUC PRN (11:37)
[2016-05-17] MEDS ORDERED: IBUPROFEN 400 MG TABLET (FP) PO PRN (11:37)
[2016-05-17] MEDS ORDERED: MAGNESIUM HYDROX 2400MG/30ML ORAL SUSPENSION 30 ML CUP PO PRN (11:37)
[2016-05-17] MEDS ORDERED: LOPERAMIDE HCL 2 MG CAPSULE PO PRN (11:37)
[2016-05-17] MEDS ORDERED: diphenhydrAMINE HCL 50 MG CAPSULE PO PRN (11:37)
[2016-05-17] MEDS ORDERED: chlordiazePOXIDE HCL 25 MG CAPSULE PO PRN (11:37)
[2016-05-17] MEDS ORDERED: MAG HYDROX/AL HYDROX/SIMETH 30 ML UNIT-DOSE CUP PO PRN (11:37)
[2016-05-17] MEDS ORDERED: MENTHOL/PHENOL 1 EACH UD MM PRN (11:37)
[2016-05-17] MEDS ORDERED: NICOTINE 14 MG/24 HOURS TOPICAL PATCH TD SCH (11:45)
[2016-05-17] MEDS ORDERED: RANITIDINE HCL 150 MG TABLET (FP) PO SCH (12:00)
[2016-05-17] MEDS ORDERED: METHADONE HCL 10 MG TABLET (FOR DETOX USE ONLY) PO ONE ×3 (12:00→23:00)
[2016-05-17] MEDS ORDERED: chlordiazePOXIDE HCL 25 MG CAPSULE PO ONE ×2 (12:00→14:45)
[2016-05-17] MEDS: CYCLOBENZAPRINE HCL 10 MG TABLET (FP) PO PRN ×2 (14:51→22:16)
[2016-05-17] MEDS: NICOTINE 14 MG/24 HOURS TOPICAL PATCH TD SCH (14:54)
[2016-05-17] MEDS: RANITIDINE HCL 150 MG TABLET (FP) PO SCH (15:50)
[2016-05-17] MEDS: chlordiazePOXIDE HCL 25 MG CAPSULE PO SCH ×2 (17:12→22:16)
[2016-05-17 17:45] LABS: URINE APPEARANCE CLEAR; URINE BILIRUBIN NEGATIVE (NEGATIVE); URINE BLOOD NEGATIVE (NEGATIVE); URINE GLUCOSE (UA) NEGATIVE (NEGATIVE); URINE KETONE TRACE (NEGATIVE); URINE LEUK ESTERASE NEGATIVE (NEGATIVE); URINE NITRITE NEGATIVE (NEGATIVE); URINE PROTEIN 2+ (NEGATIVE); URINE UROBILINOGEN NEGATIVE E.U./dl (0.2-1.0)
[2016-05-17 17:46] LABS: URINE COLOR YELLOW
[2016-05-17 17:49] LABS: CALCIUM OXALATE CRYSTALS RARE /hpf (NONE SEEN); URINE HYALINE CAST 56 /lpf; URINE MUCUS MANY; URINE RBC <1 /hpf (0-3); URINE WBC 2 /hpf (3-5)
--- NOTE | 2016-05-17 18:08 | EKG ---
Test Reason : Blood Pressure : / mmHG Vent. Rate : 086 BPM Atrial Rate : 086 BPM P-R Int : 138 ms QRS Dur : 096 ms QT Int : 378 ms P-R-T Axes : 008 064 026 degrees QTc Int : 452 ms NORMAL SINUS RHYTHM INCREASED R/S RATIO IN V1, CONSIDER EARLY TRANSITION OR POSTERIOR INFARCT ABNORMAL ECG WHEN COMPARED WITH ECG OF 07-APR-2016 12:40, SINUS RHYTHM HAS REPLACED ELECTRONIC VENTRICULAR PACEMAKER Confirmed by CARYL GALLAGHER MD ([id number]) on 05/17/2016 6:08:49 PM Referred By: Confirmed By:CARYL GALLAGHER MD
[2016-05-17] MEDS: THIAMINE HCL 100 MG TABLET (FP) PO SCH (22:16)
[2016-05-18] MEDS: chlordiazePOXIDE HCL 25 MG CAPSULE PO SCH ×4 (06:07→22:42)
--- NOTE | 2016-05-18 07:43 | CONSULT ---
[facility] Psychiatric Consult - Data Date of interview: 05/18/16 Admission source: [facility] Identifying data: This is 40 years old male with no psychiatric hospitalization history intoxicated w9ith: Alcohol, Heroin, Cannabis and Nicotine, history of PCP abuse as well Substance Abuse History: - Smoking Cessation. Smoking history: Current every day smoker. Have you smoked in the past 12 months: Yes. Aproximately how many cigarettes per day: 5. Cigars Per Day: 0. Hx Chewing Tobacco Use: No. Initiated information on smoking cessation: Yes. 'Breaking Loose' booklet given : 05/17/16 (GIVEN ON UNIT.). - Substance & Tx. History. Hx Alcohol Use: Yes. Hx Substance Use: Yes. Substance Use Type: Alcohol, Heroin, Marijuana. Hx Substance Use Treatment: Yes (Previous Detox admissions at [facility].). - Substances Abused. Heroin. Route: Injection. Frequency: Daily. Amount used: 8-10 bags. Age of first use: 16. Date of Last Use: 05/16/16. Alcohol -vodka/beer. Route: Oral. Frequency: Daily. Amount used: 2 pts./1 (40 oz.). Age of first use: 13. Date of Last Use: 05/17/16. Marijuana. Route: Smoking. Frequency: 1-2 times per week. Amount used: $5-10. Age of first use : 18. Date of Last Use: 05/13/16 Medical History: HTN, Priapism history, Obesity Psychiatric History: Patient reports evangelista cueto , reports taking prior to admission: Ambien 5mg po qhs Physical/Sexual Abuse/Trauma History: Denies Additional Comment: Ambien 5mg po qhs Mental Status Exam - Mental Status Exam Alert and Oriented to: Person Cognitive Function: Fair Patient Appearance: Unkempt Mood: Sad Affect: Flat Patient Behavior: Sedated Speech Pattern: Delayed Voice Loudness: Mildly Loud Thought Process: Circumstantial Thought Disorder: Being Controlled Hallucinations: Denies Suicidal Ideation: Denies Homicidal Ideation: Denies Insight/Judgement: Fair Sleep: Difficulty falling asleep Appetite: Weight gain Muscle strength/Tone: Mild Hypotonicity Gait/Station: Shuffling Additional Comments: Ambien 5mg po qhs Psychiatric Findings - Problem List ([place] 1, 2,3) (1) Alcohol dependence with uncomplicated withdrawal Current Visit: Yes Status: Acute (2) Cannabis dependence, uncomplicated Current Visit: Yes Status: Acute (3) Opioid dependence with withdrawal Current Visit: Yes Status: Acute (4) Nicotine dependence Current Visit: Yes Status: Chronic Qualifiers: Nicotine product type: cigarettes Substance use status: uncomplicated Qualified Code(s): F17.210 - Nicotine dependence, cigarettes, uncomplicated (5) PCP (phencyclidine) abuse Current Visit: No Status: Acute (6) Substance-induced sleep disorder Current Visit: No Status: Acute (7) Obesity Current Visit: No Status: Chronic Qualifiers: Obesity type: unspecified obesity type Obesity severity: unspecified obesity severity Qualified Code(s): E66.9 - Obesity, unspecified (8) Drug-induced mood disorder Current Visit: Yes Status: Acute - Initial Treatment Plan Initial Treatment Plan: Ambien 5mg po qhs
[2016-05-18] MEDS ORDERED: METHADONE HCL 10 MG TABLET (FOR DETOX USE ONLY) PO SCH (10:00)
[2016-05-18 10:04] LABS: MCH 29.6 pg (25.7-33.7); MCHC 33.3 g/dl (32.0-35.9); MEAN CELL VOLUME 88.8 fl (80-96); MEAN PLT VOLUME 11.2 fl (7.5-11.1); PLATELET COUNT 135 K/MM3 (134-434); RDW 13.2 % (11.9-15.9); WHITE BLOOD COUNT 5.4 K/mm3 (4.0-10.0)
[2016-05-18 10:28] LABS: ALBUMIN 3.4 g/dl (3.4-5.0); ALK PHOS 65 U/L (45-117); ANION GAP 6 (8-16); BILIRUBIN,TOTAL 0.7 mg/dL (0.2-1.0); CALCIUM 8.7 mg/dL (8.5-10.1); CO2 33 mmol/L (21-32); GLUCOSE,RANDOM 90 mg/dL (74-106); SGOT/AST 21 U/L (15-37); SGPT/ALT 30 U/L (12-78); TOT PROT 6.7 g/dl (6.4-8.2)
[2016-05-18] MEDS ORDERED: TRIMETHOBENZAMIDE HCL 300 MG CAPSULE PO PRN (10:36)
--- NOTE | 2016-05-18 10:36 | PN ---
[facility] CIWA - CIWA Score Nausea/Vomitin-Mild Nausea/No Vomiting Muscle Tremors: 4-Moderate,w/Arms Extend Anxiety: 4-Mod. Anxious/Guarded Agitation: 4-Moderately Restless Paroxysmal Sweats: 3 Orientation: 0-Oriented Tacttile Disturbances: 0-None Auditory Disturbances: 0-None Visual Disturbances: 0-None Headache: 1-Very Mild CIWA-Ar Total Score: 17 BHS COWS - Scale Resting Pulse: 0= [place] 80 or Below Sweatin=Flushed/Facial Moisture Restless Observation: 1= Difficult to Sit Still Pupil Size: 0= Normal to Room Light Bone or Joint Aches: 2= Severe Diffuse Aches Runny Nose/ Eye Tearin= Runny Nose/Eyes GI Upset > 30mins: 1= Stomach Cramp Tremor Observation of Outstretched Hands: 2= Slight Tremor Visible Yawning Observation: 1= 1-2x During Session Anxiety or Irritability: 2=Irritable/Anxious Goose Flesh Skin: 3=Piloerection COWS Score: 16 [facility] Progress Note (SOAP) Subjective: nausea agitation interrupted sleep restless sweats Objective: 05/18/16 10:34 Vital Signs Temperature 98.4 F 05/18/16 10:21 Pulse Rate 80 05/18/16 10:21 Respiratory Rate 16 05/18/16 10:21 Blood Pressure 144/97 05/18/16 10:21 O2 Sat by Pulse Oximetry (%) Laboratory Tests 05/17/16 13:24 Urine Color Yellow Urine Appearance Clear Urine pH 5.0 Ur Specific [place] 1.030 Urine Protein 2+ H Urine Glucose (UA) Negative Urine Ketones Trace H Urine Blood Negative Urine Nitrite Negative Urine Bilirubin Negative Urine Urobilinogen Negative Ur Leukocyte Esterase Negative Urine RBC <1 Urine WBC 2 Calcium Oxalate Crystal Rare Hyaline Casts 56 Urine Mucus Many labs pending awake/alert lying in bed no acute distress Assessment: 05/18/16 10:35 withdrawal sx Plan: continue detox tigan prn
[2016-05-18] MEDS: NICOTINE 14 MG/24 HOURS TOPICAL PATCH TD SCH (10:38)
[2016-05-18] MEDS: RANITIDINE HCL 150 MG TABLET (FP) PO SCH (10:40)
[2016-05-18] MEDS: PRENATAL VITAMINS W/ FOLIC ACID TABLET (FP) PO SCH (10:41)
[2016-05-18] MEDS: amLODIPine BESYLATE 10 MG TABLET (FP) PO SCH (10:41)
[2016-05-18] MEDS: CYCLOBENZAPRINE HCL 10 MG TABLET (FP) PO PRN ×2 (10:41→22:42)
[2016-05-18 14:32] LABS: SICKLE CELL SCREEN NEGATIVE (NEGATIVE)
[2016-05-18] MEDS ORDERED: ZOLPIDEM TARTRATE 10 MG TABLET (PARK CARE ONLY) PO PRN (22:00)
[2016-05-18] MEDS: THIAMINE HCL 100 MG TABLET (FP) PO SCH (22:42)
[2016-05-19] MEDS: CYCLOBENZAPRINE HCL 10 MG TABLET (FP) PO PRN (05:35)
[2016-05-19] MEDS: chlordiazePOXIDE HCL 25 MG CAPSULE PO SCH ×2 (05:42→10:12)
--- NOTE | 2016-05-19 09:34 | PN ---
S COWS - Scale Resting Pulse: 2= [place] 101-120 Sweatin=Flushed/Facial Moisture Restless Observation: 1= Difficult to Sit Still Pupil Size: 1= Pupils >than Normal Bone or Joint Aches: 4=Acute Joint/Muscle Pain Runny Nose/ Eye Tearin= Runny Nose/Eyes GI Upset > 30mins: 1= Stomach Cramp Tremor Observation of Outstretched Hands: 2= Slight Tremor Visible Yawning Observation: 0= None Anxiety or Irritability: 2=Irritable/Anxious Goose Flesh Skin: 0=Smooth Skin COWS Score: 17 S Progress Note (SOAP) Subjective: intrerrupted sleep, sweats , shakes , irritable Objective: 05/19/16 09:33 Vital Signs Temperature 97.5 F L 05/19/16 06:31 Pulse Rate 88 05/19/16 06:31 Respiratory Rate 18 05/19/16 06:31 Blood Pressure 127/87 05/19/16 06:31 O2 Sat by Pulse Oximetry (%) Laboratory Tests 05/17/16 05/17/16 05/18/16 07:00 13:24 07:00 WBC 5.4 RBC 4.70 Hgb 13.9 Hct 41.7 MCV 88.8 MCHC 33.3 RDW 13.2 Plt Count 135 MPV 11.2 H Sickle Cell Screen Negative Sodium Potassium Chloride Carbon Dioxide Anion Gap BUN Creatinine Creat Clearance w eGFR Random Glucose Calcium Total Bilirubin AST ALT Alkaline Phosphatase Total Protein Albumin Urine Color Yellow Urine Appearance Clear Urine pH 5.0 Ur Specific [place] 1.030 Urine Protein 2+ H Urine Glucose (UA) Negative Urine Ketones Trace H Urine Blood Negative Urine Nitrite Negative Urine Bilirubin Negative Urine Urobilinogen Negative Ur Leukocyte Esterase Negative Urine RBC <1 Urine WBC 2 Calcium Oxalate Crystal Rare Hyaline Casts 56 Urine Mucus Many RPR Titer Hepatitis C Antibody >11.0 H 05/18/16 05/18/16 07:00 07:00 WBC RBC Hgb Hct MCV MCHC RDW Plt Count MPV Sickle Cell Screen Sodium 138 Potassium 4.0 Chloride 99 Carbon Dioxide 33 H Anion Gap 6 L BUN 16 Creatinine 1.0 Creat Clearance w eGFR > 60 Random Glucose 90 Calcium 8.7 Total Bilirubin 0.7 D AST 21 ALT 30 D Alkaline Phosphatase 65 Total Protein 6.7 Albumin 3.4 Urine Color Urine Appearance Urine pH Ur Specific [place] Urine Protein Urine Glucose (UA) Urine Ketones Urine Blood Urine Nitrite Urine Bilirubin Urine Urobilinogen Ur Leukocyte Esterase Urine RBC Urine WBC Calcium Oxalate Crystal Hyaline Casts Urine Mucus RPR Titer Nonreactive Hepatitis C Antibody Assessment: 05/19/16 09:33 withdrawal sx 05/19/16 10:45 htn Plan: cont, detox increase fluids methadone now clonidine 0.2 mg now
[2016-05-19] MEDS ORDERED: METHADONE HCL 5 MG TABLET (FOR DETOX USE ONLY) PO SCH (10:00)
[2016-05-19] MEDS ORDERED: cloNIDine HCL 0.1 MG TABLET PO ONE (10:07)
[2016-05-19 10:09] VITALS: BP 150/99; PULSE 109; TEMP 98.1
[2016-05-19] MEDS: amLODIPine BESYLATE 10 MG TABLET (FP) PO SCH (10:11)
[2016-05-19] MEDS: PRENATAL VITAMINS W/ FOLIC ACID TABLET (FP) PO SCH (10:11)
[2016-05-19] MEDS: NICOTINE 14 MG/24 HOURS TOPICAL PATCH TD SCH (10:12)
[2016-05-19] MEDS: RANITIDINE HCL 150 MG TABLET (FP) PO SCH (10:12)
--- NOTE | 2016-05-19 10:53 | DS ---
[facility] Detox Discharge Summary Admission Date: 05/17/16 Discharge Date: 05/19/16 - History Present History: Alcohol Dependence, Cannabis Dependence, Opioid Dependence - Physical Exam Results Vital Signs: Vital Signs Temperature 98.1 F 05/19/16 10:08 Pulse Rate 109 H 05/19/16 10:08 Respiratory Rate 20 05/19/16 10:08 Blood Pressure 150/99 05/19/16 10:08 O2 Sat by Pulse Oximetry (%) - Treatment Hospital Course: Detox Protocol Followed, Detoxed Safely, Responded well, Discharged Condition Good - Medication Discharge Medications: Ambulatory Orders Amlodipine Besylate [Norvasc -] 10 mg PO DAILY #30 tablet 04/21/14 Zolpidem Tartrate [Ambien] 10 mg PO HS #14 tablet MDD 10 05/18/16 - Diagnosis (1) Alcohol dependence with uncomplicated withdrawal Current Visit: Yes Status: Chronic (2) Cannabis dependence, uncomplicated Current Visit: Yes Status: Chronic (3) Opioid dependence with withdrawal Current Visit: Yes Status: Chronic (4) Chronic heartburn Current Visit: Yes Status: Chronic (5) Essential hypertension Current Visit: Yes Status: Chronic (6) Obesity Status: Chronic Qualifiers: Obesity type: unspecified obesity type Obesity severity: unspecified obesity severity Qualified Code(s): E66.9 - Obesity, unspecified - AMA Did Patient Leave Against Medical Advice: Yes (states methadone is not enough wants to go. )
[2016-05-19] MEDS ORDERED: chlordiazePOXIDE 5 MG CAPSULE PO SCH (17:00)
[2016-05-19] MEDS ORDERED: cloNIDine HCL 0.1 MG TABLET PO SCH (22:00)
[2016-05-20] MEDS ORDERED: chlordiazePOXIDE HCL 10 MG CAPSULE PO SCH (17:00)
[2016-05-21] MEDS ORDERED: METHADONE HCL 10 MG TABLET (FOR DETOX USE ONLY) PO SCH (10:00)
[2016-05-22] MEDS ORDERED: METHADONE HCL 5 MG TABLET (FOR DETOX USE ONLY) PO SCH (06:00)
== END 2016-05-19 10:49 | disposition left against medical advice (07) | DRG 770 ==
LOC: YASAS 09:53 → Y6N 11:36
PROVIDERS: ADMIT Internal Medicine; ATTEND Internal Medicine
PROC: HZ2ZZZZ Detoxification Services for Substance Abuse Treatment (ICD-10-PCS; principal; 2016-05-17)
DX: F11.23 Opioid dependence with withdrawal (principal); F10.230 Alcohol dependence with withdrawal, uncomplicated; F12.20 Cannabis dependence, uncomplicated; F17.210 Nicotine dependence, cigarettes, uncomplicated; F19.24 Other psychoactive substance dependence with psychoactive substance-induced mood disorder; F19.282 Other psychoactive substance dependence with psychoactive substance-induced sleep disorder; I10 Essential (primary) hypertension; R12 Heartburn; E66.9 Obesity, unspecified; Z68.35 Body mass index [BMI] 35.0-35.9, adult; K21.9 Gastro-esophageal reflux disease without esophagitis; B18.2 Chronic viral hepatitis C
CPT/HCPCS: 36415; 80053; 81003; 81015; 85027; 85660; 86593; 87522; 93005; 93010

== ENCOUNTER 2016-09-08 08:19 | Inpatient (IN) | payer OTHER ==
[2016-09-08 10:17] VITALS: BMI 35.2
--- NOTE | 2016-09-08 12:42 | HP ---
COWS - Scale Resting Pulse: 0= [place] 80 or Below Sweatin=Flushed/Facial Moisture Restless Observation: 3= Extraneous Movement Pupil Size: 2= Moderately Dilated Bone or Joint Aches: 2= Severe Diffuse Aches Runny Nose/ Eye Tearin= Runny Nose/Eyes GI Upset > 30mins: 3= Vomiting/Diarrhea Tremor Observation: 2= Slight Tremor Visible Yawning Observation: 2= >3x During Session Anxiety or Irritability: 2=Irritable/Anxious Goose Flesh Skin: 0=Smooth Skin COWS Score: 20 CIWA Score - CIWA Score Nausea/Vomitin Muscle Tremors: 3 Anxiety: 3 Agitation: 3 Paroxysmal Sweats: 2 Orientation: 0-Oriented Tacttile Disturbances: 2-Mild Itch/Numbness/Burn Auditory Disturbances: 2-Mild Harshness/Frighten Visual Disturbances: 2-Mild Sensitivity Headache: 2-Mild CIWA-Ar Total Score: 22 Admission ROS S - HPI Chief Complaint: i need help to stop using heroin,alcohol,xanax Allergies/Adverse Reactions: Allergies Allergy/AdvReac Type Severity Reaction Status Date / Time Fish Containing Products Allergy Severe Hives Verified 09/08/16 11:35 peanut Allergy Severe Difficulty Verified 09/08/16 11:35 Breathing No Known Drug Allergies Allergy Verified 09/08/16 11:35 trazodone AdvReac Severe priapism Verified 09/08/16 11:35 History of Present Illness: this 40 years old male with heroin,alcohol,and xanax,seeking detox,last treatment form 05/17/16 to-05/19/16 [facility] seizure in 2001 syncope nicotine dependence longest period of sobriety 3 years - Ebola screening Have you traveled outside of the country in the last 21 days: No Have you had contact with anyone from an Ebola affected area: No Have you been sick,other than usual withdrawal symptoms: No - Review of Systems Constitutional: Chills, Diaphoresis, Loss of Appetite, Malaise, Night Sweats, Changes in sleep, Weakness EENT: reports: Tearing, Nose Congestion Respiratory: reports: No Symptoms reported Cardiac: reports: Palpitations GI: reports: Blood Streaked Bowels, Diarrhea, Nausea, Abdominal cramping : reports: No Symptoms Reported Musculoskeletal: reports: Back Pain, Joint Pain, Muscle Pain, Joint Stiffness Integumentary: reports: Dryness Endocrine: reports: No Symptoms Reported Hematology: reports: No Symptoms Reported Psychiatric: reports: other (insomnia,anxiety) Patient History - Patient Medical History Hx Anemia: No Hx Asthma: No Hx Chronic Obstructive Pulmonary Disease (COPD): No Hx Cancer: No Hx Cardiac Disorders: No Hx Congestive Heart Failure: No Hx Hypertension: Yes (on med) Hx Hypercholesterolemia: No Hx Pacemaker: No HX Cerebrovascular Accident: No Hx Seizures: Yes (drug related-last episode was in 2003) Hx Dementia: No Hx Diabetes: No Hx Gastrointestinal Disorders: No Hx Liver Disease: Yes (Hep C, Treated 2007, Achieved SVR.) Hx Genitourinary Disorders: No Hx Sexually Transmitted Disorders: No Hx Renal Disease (ESRD): No Hx Thyroid Disease: No Hx Human Immunodeficiency Virus (HIV): No (NEGATIVE HX; Last tested: 03/2016.) Hx Hepatitis C: Yes (WAS TREATED 2007, ACHIEVED SVR.) Hx Depression: No Hx Suicide Attempt: No Hx Bipolar Disorder: No Hx Schizophrenia: No Other Medical History: insomnia,anxiety - Patient Surgical History Past Surgical History: Yes Hx Neurologic Surgery: No Hx Cataract Extraction: No Hx Cardiac Surgery: No Hx Lung Surgery: No Hx Breast Surgery: No Hx Breast Biopsy: No Hx Abdominal Surgery: No Hx Appendectomy: No Hx Cholecystectomy: No Hx Genitourinary Surgery: No Hx Section: No Hx Orthopedic Surgery: Yes (left ankle in 1998) Other Surgical History: R arm abscess 1 yr ago. Anesthesia Reaction: No - PPD History Previous Implant?: Yes Documented Results: Negative w/proof Implanted On Prior [facility] Admission?: Yes Date: 04/09/16 Results: 0 mm PPD to be Administered?: No - Smoking Cessation Smoking history: Current every day smoker Have you smoked in the past 12 months: Yes Aproximately how many cigarettes per day: 5 Cigars Per Day: 0 Hx Chewing Tobacco Use: No Initiated information on smoking cessation: Yes 'Breaking Loose' booklet given: 09/08/16 - Substance & Tx. History Hx Alcohol Use: Yes Hx Substance Use: Yes Substance Use Type: Alcohol, Heroin, Tranquilizers Hx Substance Use Treatment: Yes ([facility] 05/17/16 to 05/19/16) - Substances Abused Heroin Route: Injection Frequency: Daily Amount used: 13 bags Age of first use: 16 Date of Last Use: 09/08/16 Alcohol-vodka Route: Oral Frequency: Daily Amount used: 1-2 pts. Age of first use: 13 Date of Last Use: 09/08/16 Xanax Route: Oral Frequency: 1-2 times per week Amount used: 3-4 mg. Age of first use: 23 Date of Last Use: 09/05/16 Family Disease History - Family Disease History Family Disease History: Diabetes: Father (HTN, alcohol,), Heart Disease : Father, Other: Father, Mother (Knee Osteoarthritis.) Admission Physical Exam [facility] - Vital Signs Vital Signs: Vital Signs - 24 hr 09/08/16 10:11 Temperature 97.5 F L Pulse Rate 80 Respiratory 18 Rate Blood Pressure 134/89 - Physical General Appearance: Yes: Moderate Distress, Tremorous, Irritable, Sweating, Anxious HEENTM: Yes: Normal ENT Inspection, MEÑO, Pharynx Normal, Nasal Congestion Respiratory: Yes: Lungs Clear, Normal Breath Sounds, No Respiratory Distress Neck: Yes: Within Normal Limits, Supple, Trachea in good position Breast: Yes: Within Normal Limits Cardiology: Yes: Within Normal Limits, Regular Rhythm, Regular Rate, S1, S2 Abdominal: Yes: Within Normal Limits, Normal Bowel Sounds, Non Tender, Soft Genitourinary: Yes: Within Normal Limits Musculoskeletal: Yes: full range of Motion, Back pain, Joint Stiffness, Muscle Pain Extremities: Yes: Within Normal Limits, Normal Range of Motion, Tremors, Other ( scar left ankle) Neurological: Yes: economics consultant II-XII NML intact, Fully Oriented, Alert, Motor Strength 5/5, Normal Mood/Affect Integumentary: Yes: Dry Lymphatic: Yes: Within Normal Limits - Diagnostic (1) Alcohol dependence with uncomplicated withdrawal Current Visit: No Status: Chronic (2) Uncomplicated sedative, hypnotic or anxiolytic withdrawal Current Visit: Yes Status: Acute (3) Weight loss Current Visit: Yes Status: Acute (4) Nicotine dependence Current Visit: No Status: Chronic Qualifiers: Nicotine product type: cigarettes Substance use status: uncomplicated Qualified Code(s): F17.210 - Nicotine dependence, cigarettes, uncomplicated (5) Hepatitis C Current Visit: Yes Status: Acute (6) Essential hypertension Current Visit: No Status: Chronic Comment: obesity related hypertension (7) Insomnia Current Visit: No Status: Chronic Cleared for Admission [facility] - Detox or Rehab [facility] Level of Care: Medically Managed Detox Regimen/Protocol: Methadone/Librium BHS Breath Alcohol Content Breath Alcohol Content: 0 Urine Drug Screen - Results Drug Screen Negative: No Urine Drug Screen Results: OPI-Opiates, BZO-Benzodiazepines, MTD-Methadone
[2016-09-08] MEDS ORDERED: MENTHOL/PHENOL 1 EACH UD MM PRN (12:54)
[2016-09-08] MEDS ORDERED: chlordiazePOXIDE HCL 25 MG CAPSULE PO PRN (12:54)
[2016-09-08] MEDS ORDERED: diphenhydrAMINE HCL 50 MG CAPSULE PO PRN (12:54)
[2016-09-08] MEDS ORDERED: guaiFENesin/D-METHORPHAN HB 10 ML UNIT-DOSE CUPS PO PRN (12:54)
[2016-09-08] MEDS ORDERED: hydrOXYzine PAMOATE 50 MG CAPSULE (FP) PO PRN (12:54)
[2016-09-08] MEDS ORDERED: ACETAMINOPHEN 325 MG TABLET (FP) PO PRN (12:54)
[2016-09-08] MEDS ORDERED: LOPERAMIDE HCL 2 MG CAPSULE PO PRN (12:54)
[2016-09-08] MEDS ORDERED: MAGNESIUM CITRATE 300 ML BOTTLE PO PRN (12:54)
[2016-09-08] MEDS ORDERED: MAGNESIUM HYDROX 2400MG/30ML ORAL SUSPENSION 30 ML CUP PO PRN (12:54)
[2016-09-08] MEDS ORDERED: P-EPHED 60MG/TRIPROLIDI 2.5MG TABLET PO PRN (12:54)
[2016-09-08] MEDS ORDERED: NICOTINE POLACRILEX 2 MG GUM BC PRN (12:54)
[2016-09-08] MEDS ORDERED: IBUPROFEN 400 MG TABLET (FP) PO PRN (12:54)
[2016-09-08] MEDS ORDERED: MAG HYDROX/AL HYDROX/SIMETH 30 ML UNIT-DOSE CUP PO PRN (12:54)
[2016-09-08] MEDS ORDERED: chlordiazePOXIDE HCL 25 MG CAPSULE PO ONE (12:59)
[2016-09-08] MEDS ORDERED: METHADONE HCL 10 MG TABLET (FOR DETOX USE ONLY) PO ONE ×2 (12:59→23:00)
--- NOTE | 2016-09-08 13:10 | CONSULT ---
[facility] Psychiatric Consult - Data Date of interview: 09/08/16 Admission source: [facility] Identifying data: This is 40 years old male with no psychiatric hospitalization history intoxicated with: Alcohol;, Opiuoids, Xanax, Methadone, history of PCP abuse as well Substance Abuse History: Smoking history: Current every day smoker. Have you smoked in the past 12 months: Yes. Aproximately how many cigarettes per day: 5. Cigars Per Day: 0. Hx Chewing Tobacco Use: No. Initiated information on smoking cessation: Yes. 'Breaking Loose' booklet given: 09/08/16. - Substance & Tx. History. Hx Alcohol Use: Yes. Hx Substance Use: Yes. Substance Use Type : Alcohol, Heroin, Tranquilizers. Hx Substance Use Treatment: Yes ([facility] to 05/19/16). - Substances Abused. Heroin. Route: Injection. Frequency : Daily. Amount used: 13 bags. Age of first use: 16. Date of Last Use: . Alcohol-vodka. Route: Oral. Frequency: Daily. Amount used: 1-2 pts. Age of first use: 13. Date of Last Use: 09/08/16. Xanax. Route: Oral. Frequency: 1-2 times per week. Amount used: 3-4 mg. Age of first use: 23. Date of Last Use: 09/05/16 Medical History: HepC+, Weight loss, GERD, HTN, Obesity, Syncope history Psychiatric History: Patient reports history od insomnia, reports taking prior to admission: Ambien 10mg po qhs with good response Physical/Sexual Abuse/Trauma History: Denies Additional Comment: Ambien 10mg po qhs Mental Status Exam - Mental Status Exam Alert and Oriented to: Person Cognitive Function: Fair Patient Appearance: Unkempt Mood: Anxious Affect: Mood Congruent Patient Behavior: Cooperative Speech Pattern: Appropriate Voice Loudness: Normal Thought Process: Goal Oriented Thought Disorder: Being Controlled Hallucinations: Denies Suicidal Ideation: Denies Homicidal Ideation: Denies Insight/Judgement: Fair Sleep: Difficulty falling asleep Appetite: Weight gain Muscle strength/Tone: Normal Gait/Station: Normal Additional Comments: Ambien 10mg po qhs Psychiatric Findings - Problem List ([place] 1, 2,3) (1) Uncomplicated sedative, hypnotic or anxiolytic withdrawal Current Visit: Yes Status: Acute (2) Weight loss Current Visit: Yes Status: Acute (3) Drug-induced mood disorder Current Visit: No Status: Acute (4) PCP (phencyclidine) abuse Current Visit: No Status: Acute (5) Substance-induced sleep disorder Current Visit: No Status: Acute (6) Alcohol dependence with uncomplicated withdrawal Current Visit: No Status: Chronic (7) Cannabis dependence, uncomplicated Current Visit: No Status: Chronic (8) Nicotine dependence Current Visit: No Status: Chronic Qualifiers: Nicotine product type: cigarettes Substance use status: uncomplicated Qualified Code(s): F17.210 - Nicotine dependence, cigarettes, uncomplicated (9) Opioid dependence with withdrawal Current Visit: No Status: Chronic - Initial Treatment Plan Initial Treatment Plan: Ambien 10mg po qhs
[2016-09-08] MEDS: chlordiazePOXIDE HCL 25 MG CAPSULE PO SCH ×2 (17:19→22:44)
[2016-09-08 18:05] LABS: URINE APPEARANCE SLCLOUDY; URINE BILIRUBIN NEGATIVE (NEGATIVE); URINE BLOOD NEGATIVE (NEGATIVE); URINE COLOR DKYELLOW; URINE GLUCOSE (UA) NEGATIVE (NEGATIVE); URINE KETONE NEGATIVE (NEGATIVE); URINE LEUK ESTERASE NEGATIVE (NEGATIVE); URINE NITRITE NEGATIVE (NEGATIVE); URINE PROTEIN NEGATIVE (NEGATIVE); URINE UROBILINOGEN NEGATIVE E.U./dl (0.2-1.0)
[2016-09-08] MEDS ORDERED: THIAMINE HCL 100 MG TABLET (FP) PO SCH (22:00)
[2016-09-08] MEDS ORDERED: ZOLPIDEM TARTRATE 10 MG TABLET (PARK CARE ONLY) PO PRN (22:00)
[2016-09-09] MEDS: chlordiazePOXIDE HCL 25 MG CAPSULE PO SCH ×2 (05:29→10:31)
[2016-09-09 09:49] LABS: MCH 30.2 pg (25.7-33.7); MCHC 33.3 g/dl (32.0-35.9); MEAN CELL VOLUME 90.8 fl (80-96); MEAN PLT VOLUME 11.1 fl (7.5-11.1); PLATELET COUNT 153 K/MM3 (134-434); RDW 13.1 % (11.9-15.9)
[2016-09-09] MEDS ORDERED: METHADONE HCL 10 MG TABLET (FOR DETOX USE ONLY) PO SCH (10:00)
[2016-09-09] MEDS ORDERED: amLODIPine BESYLATE 10 MG TABLET (FP) PO SCH (10:00)
[2016-09-09] MEDS ORDERED: PRENATAL VITAMINS W/ FOLIC ACID TABLET (FP) PO SCH (10:00)
--- NOTE | 2016-09-09 11:05 | EKG ---
Test Reason : Blood Pressure : / mmHG Vent. Rate : 065 BPM Atrial Rate : 065 BPM P-R Int : 154 ms QRS Dur : 096 ms QT Int : 446 ms P-R-T Axes : 013 076 058 degrees QTc Int : 463 ms NORMAL SINUS RHYTHM NORMAL ECG WHEN COMPARED WITH ECG OF 17-MAY-2016 15:04, NO SIGNIFICANT CHANGE WAS FOUND Confirmed by VAN NEWBY MD ([id number]) on 09/09/2016 11:05:20 AM Referred By: Confirmed By:VAN NEWBY MD
[2016-09-09 11:08] LABS: ALK PHOS 73 U/L (45-117); ANION GAP 9 (8-16); BILIRUBIN,TOTAL 0.8 mg/dL (0.2-1.0); CALCIUM 9.8 mg/dL (8.5-10.1); CO2 28 mmol/L (21-32); CREATININE 1.5 mg/dL (0.7-1.3); GLUCOSE,RANDOM 88 mg/dL (74-106); SGOT/AST 41 U/L (15-37); SGPT/ALT 60 U/L (12-78); TOT PROT 7.7 g/dl (6.4-8.2)
--- NOTE | 2016-09-09 11:17 | PN ---
[facility] CIWA - CIWA Score Nausea/Vomitin-No Nausea/No Vomiting Muscle Tremors: 4-Moderate,w/Arms Extend Anxiety: 4-Mod. Anxious/Guarded Agitation: 4-Moderately Restless Paroxysmal Sweats: 1-Minimal Palms Moist Orientation: 0-Oriented Tacttile Disturbances: 3-Moderate Itch/Numb/Burn Auditory Disturbances: 0-None Visual Disturbances: 0-None Headache: 0-None Present CIWA-Ar Total Score: 16 S COWS - Scale Resting Pulse: 1= RI 81-100 Sweatin= Chills/Flushing Restless Observation: 3= Extraneous Movement Pupil Size: 2= Moderately Dilated Bone or Joint Aches: 4=Acute Joint/Muscle Pain Runny Nose/ Eye Tearin= Nasal Congestion GI Upset > 30mins: 1= Stomach Cramp Tremor Observation of Outstretched Hands: 1= Tremor [place], Not Seen Yawning Observation: 1= 1-2x During Session Anxiety or Irritability: 2=Irritable/Anxious Goose Flesh Skin: 0=Smooth Skin COWS Score: 17 [facility] Progress Note (SOAP) Subjective: ANXIETY,SWEATS,BODY AND JOINT PAINS,HEARTBURN/REFLUX-TAKES TUMS AND NEXIUM Objective: 09/09/16 11:16 Vital Signs Temperature 98 F 09/09/16 09:38 Pulse Rate 81 09/09/16 09:38 Respiratory Rate 20 09/09/16 09:38 Blood Pressure 117/79 09/09/16 09:38 O2 Sat by Pulse Oximetry (%) Laboratory Last Values WBC 6.0 K/mm3 (4.0-10.0) 09/09/16 06:00 RBC 4.77 M/mm3 (4.00-5.60) 09/09/16 06:00 Hgb 14.4 GM/dL (11.7-16.9) 09/09/16 06:00 Hct 43.3 % (35.4-49) 09/09/16 06:00 MCV 90.8 fl (80-96) 09/09/16 06:00 MCHC 33.3 g/dl (32.0-35.9) 09/09/16 06:00 RDW 13.1 % (11.9-15.9) 09/09/16 06:00 Plt Count 153 K/MM3 (134-434) 09/09/16 06:00 MPV 11.1 fl (7.5-11.1) 09/09/16 06:00 Sodium 139 mmol/L (136-145) 09/09/16 06:00 Potassium 4.4 mmol/L (3.5-5.1) 09/09/16 06:00 Chloride 102 mmol/L (98-107) 09/09/16 06:00 Carbon Dioxide 28 mmol/L (21-32) 09/09/16 06:00 Anion Gap 9 (8-16) 09/09/16 06:00 BUN 27 mg/dL (7-18) H D 09/09/16 06:00 Creatinine 1.5 mg/dL (0.7-1.3) H D 09/09/16 06:00 Creat Clearance w eGFR 52.10 (>60) 09/09/16 06:00 Random Glucose 88 mg/dL (74-106) 09/09/16 06:00 Calcium 9.8 mg/dL (8.5-10.1) 09/09/16 06:00 Total Bilirubin 0.8 mg/dL (0.2-1.0) 09/09/16 06:00 AST 41 U/L (15-37) H D 09/09/16 06:00 ALT 60 U/L (12-78) D 09/09/16 06:00 Alkaline Phosphatase 73 U/L (45-117) 09/09/16 06:00 Total Protein 7.7 g/dl (6.4-8.2) 09/09/16 06:00 Albumin 4.0 g/dl (3.4-5.0) 09/09/16 06:00 Urine Color Dkyellow 09/08/16 13:43 Urine Appearance Slcloudy 09/08/16 13:43 Urine pH 5.0 (5.0-8.0) 09/08/16 13:43 Ur Specific [place] >= 1.030 (1.005-1.025) H 09/08/16 13:43 Urine Protein Negative (NEGATIVE) 09/08/16 13:43 Urine Glucose (UA) Negative (NEGATIVE) 09/08/16 13:43 Urine Ketones Negative (NEGATIVE) 09/08/16 13:43 Urine Blood Negative (NEGATIVE) 09/08/16 13:43 Urine Nitrite Negative (NEGATIVE) 09/08/16 13:43 Urine Bilirubin Negative (NEGATIVE) 09/08/16 13:43 Urine Urobilinogen Negative E.U./dl (0.2-1.0) 09/08/16 13:43 Ur Leukocyte Esterase Negative (NEGATIVE) 09/08/16 13:43 Assessment: 09/09/16 11:16 WITHDRAWAL SX Plan: CONTINUE DETOX FLEXERIL DIRECTED ZANTAC DIRECTED
[2016-09-09] MEDS ORDERED: RANITIDINE HCL 150 MG TABLET (FP) PO ONE (11:34)
[2016-09-09] MEDS ORDERED: CYCLOBENZAPRINE HCL 10 MG TABLET (FP) PO SCH (14:00)
[2016-09-09 14:26] VITALS: BP 129/84; PULSE 74; TEMP 98.2
--- NOTE | 2016-09-09 15:07 | DS ---
[facility] Detox Discharge Summary Admission Date: 09/08/16 Discharge Date: 09/09/16 - History Present History: Alcohol Dependence, Opioid Dependence, Sedative Dependence Additional Comments: PT DECLINED TO CONTINUE WITH DETOX FOR PERSONAL REASONS. PT HAS BEEN HERE ABOUT 8 TX EPISODES AND ONLY ABLE TO COMPLETE ONE. PT HAS A PATTERN OF INCOMPLETE TREATMENT. PT HAS BEEN SPOKEN TO BY COUNSELOR MATHIEU. PT DOES NOT APPEAR TO TAKE TREATMENT SERIOUSLY. PT TO F/U WITH PMD FOR HIS COMORBID CONDITIONS. Pertinent Past History: HEP C HTN - Physical Exam Results Vital Signs: Vital Signs Temperature 98.2 F 09/09/16 14:25 Pulse Rate 74 09/09/16 14:25 Respiratory Rate 18 09/09/16 14:25 Blood Pressure 129/84 09/09/16 14:25 O2 Sat by Pulse Oximetry (%) Pertinent Admission Physical Exam Findings: WITHDRAWAL SX - Treatment Hospital Course: Discharged Condition Good, Rehab Referral Accepted Patient has Accept[facility] - Medication Discharge Medications: Ambulatory Orders Amlodipine Besylate [Norvasc -] 10 mg PO DAILY #30 tablet 04/21/14 Zolpidem Tartrate [Ambien] 10 mg PO HS #14 tablet MDD 10 05/18/16 - Diagnosis (1) Hepatitis C Status: Chronic Qualifiers: Viral hepatitis chronicity: chronic (2) Alcohol dependence with uncomplicated withdrawal Status: Acute (3) Essential hypertension Status: Chronic (4) Nicotine dependence Status: Acute Qualifiers: Nicotine product type: cigarettes Substance use status: in withdrawal Qualified Code(s): F17.213 - Nicotine dependence, cigarettes, with withdrawal (5) Obesity Status: Chronic Qualifiers: Obesity type: unspecified obesity type Obesity severity: unspecified obesity severity Qualified Code(s): E66.9 - Obesity, unspecified (6) Opioid dependence with withdrawal Status: Acute (7) Uncomplicated sedative, hypnotic or anxiolytic withdrawal Status: Acute (8) Drug-induced mood disorder Status: Acute (9) Substance-induced sleep disorder Status: Acute - AMA Did Patient Leave Against Medical Advice: Yes (AMA)
[2016-09-09] MEDS ORDERED: chlordiazePOXIDE HCL 25 MG CAPSULE PO SCH (17:00)
[2016-09-09] MEDS ORDERED: RANITIDINE HCL 150 MG TABLET (FP) PO SCH (22:00)
[2016-09-10] MEDS ORDERED: METHADONE HCL 5 MG TABLET (FOR DETOX USE ONLY) PO SCH (10:00)
[2016-09-10] MEDS ORDERED: chlordiazePOXIDE 5 MG CAPSULE PO SCH (17:00)
[2016-09-11] MEDS ORDERED: chlordiazePOXIDE HCL 10 MG CAPSULE PO SCH (17:00)
[2016-09-12] MEDS ORDERED: METHADONE HCL 10 MG TABLET (FOR DETOX USE ONLY) PO SCH (10:00)
[2016-09-13] MEDS ORDERED: METHADONE HCL 5 MG TABLET (FOR DETOX USE ONLY) PO SCH (06:00)
== END 2016-09-09 15:04 | disposition left against medical advice (07) | DRG 770 ==
LOC: YASAS 08:19 → Y3N 12:36
PROVIDERS: ADMIT Internal Medicine; ATTEND Internal Medicine
PROC: HZ2ZZZZ Detoxification Services for Substance Abuse Treatment (ICD-10-PCS; principal; 2016-09-08)
DX: F11.23 Opioid dependence with withdrawal (principal); F10.230 Alcohol dependence with withdrawal, uncomplicated; F13.230 Sedative, hypnotic or anxiolytic dependence with withdrawal, uncomplicated; F17.210 Nicotine dependence, cigarettes, uncomplicated; F19.24 Other psychoactive substance dependence with psychoactive substance-induced mood disorder; F19.282 Other psychoactive substance dependence with psychoactive substance-induced sleep disorder; I10 Essential (primary) hypertension; B18.2 Chronic viral hepatitis C; E66.9 Obesity, unspecified; Z68.35 Body mass index [BMI] 35.0-35.9, adult; G47.00 Insomnia, unspecified; Z87.898 Personal history of other specified conditions; Z91.013 Allergy to seafood; Z91.010 Allergy to peanuts; Z88.8 Allergy status to other drugs, medicaments and biological substances; Z86.69 Personal history of other diseases of the nervous system and sense organs
CPT/HCPCS: 36415; 80053; 81003; 85027; 86593; 93005; 93010